=== PATIENT | male | born 1980 | race Caucasian/White ===

== ENCOUNTER 2017-05-01 15:41 | Emergency (ER) | payer SELFPAY ==
[~2017-05-01] VITALS: Ht 185.4 cm; Wt 95.0 kg
[2017-05-01 15:42] VITALS: BP 141/84; PULSE 101; RESP 16; TEMP 98.6; O2SAT 96
[2017-05-01 17:02] VITALS: BP 125/75; PULSE 81; RESP 18; O2SAT 98
[2017-05-01 17:07] VITALS: BP 125/75; PULSE 81; RESP 18; O2SAT 98
--- NOTE | 2017-05-01 17:07 | PD ---
HPI Chief Complaint: Neuro Symptoms/ Deficits Time Seen by Provider: 16:56 Travel History International Travel<30 days: No Contact w/Intl Traveler<30days: No Traveled to known affect area: No History of Present Illness HPI 37-year-old male here for evaluation of left arm numbness and right ankle burning. The patient reports intermittent left arm numbness for the last week. He also has intermittent burning sensation in his right ankle for the last 6 weeks. He denies pain anywhere. No head or neck pain. No chest pain. Currently his left arm is not numb, however he states about a minute before I walked in his roommate did feel numb. He reports total arm numbness sensation. No weakness. He has noted some intermittent blurry vision as well. [facility] Social History Alcohol Use: Yes Tobacco Use: Yes Substance Use: No Allergies-Medications (Allergen,Severity, Reaction): Coded Allergies: No Known Allergies (Verified Allergy, Unknown, 05/01/17) Reported Meds & Prescriptions Reported Meds & Active Scripts Active No Active Prescriptions or Reported Medications Review of Systems Except as stated in HPI: all other systems reviewed are Neg Physical Exam Narrative GENERAL: Well-developed, well-nourished, awake, alert, GCS 15, no apparent distress. SKIN: Focused skin assessment warm/dry. HEAD: Atraumatic. Normocephalic. EYES: Pupils equal and round. No scleral icterus. No injection or drainage. ENT: Mucous membranes pink and moist. NECK: Trachea midline. No JVD. No midline cervical spine step-off or tenderness. CARDIOVASCULAR: Regular rate and rhythm. Distal pulses brisk and equal bilaterally. RESPIRATORY: No accessory muscle use. Clear to auscultation. Breath sounds equal bilaterally. GASTROINTESTINAL: Abdomen soft, non-tender, nondistended. MUSCULOSKELETAL: No obvious deformities. No clubbing. No cyanosis. No edema. Right ankle without obvious deformity. Bilateral calves are supple and nontender. NEUROLOGICAL: Awake and alert. No obvious cranial nerve deficits. Motor grossly within normal limits. Normal speech. Normal muscle strength and range of motion in bilateral upper and lower extremities. Normal sensation in all 4 extremities. PSYCHIATRIC: Appropriate mood and affect; insight and judgment normal. Data Data Last Documented VS Vital Signs Date Time Temp Pulse Resp B/P (MAP) Pulse Ox O2 Delivery O2 Flow Rate FiO2 05/01/17 19:01 81 18 117/65 (82) 98 05/01/17 17:07 Room Air 05/01/17 15:42 98.6 Orders Orders Complete Blood Count With Diff (05/01/17 17:03) Comprehensive Metabolic Panel (05/01/17 17:03) Prothrombin Time / Inr (Pt) (05/01/17 17:03) Act Partial Throm Time (Ptt) (05/01/17 17:03) Iv Access Insert/Monitor (05/01/17 17:03) Ecg Monitoring (05/01/17 17:03) Oximetry (05/01/17 17:03) Sodium Chloride 0.9% Flush (Ns Flush) (05/01/17 17:15) Electrocardiogram (05/01/17 17:03) Ct Brain W/O Iv Contrast(Rout) (05/01/17 ) Ct Cerv Spine W/O Contrast (05/01/17 ) Mandatory Outpatient Referral (05/01/17 18:29) Labs Laboratory Tests Test 05/01/17 17:55 White Blood Count 7.3 TH/MM3 Red Blood Count 4.80 MIL/MM3 Hemoglobin 16.0 GM/DL Hematocrit 46.8 % Mean Corpuscular Volume 97.5 FL Mean Corpuscular Hemoglobin 33.2 PG Mean Corpuscular Hemoglobin Concent 34.1 % Red Cell Distribution Width 13.8 % Platelet Count 192 TH/MM3 Mean Platelet Volume 7.9 FL Neutrophils (%) (Auto) 44.7 % Lymphocytes (%) (Auto) 44.0 % Monocytes (%) (Auto) 8.3 % Eosinophils (%) (Auto) 2.6 % Basophils (%) (Auto) 0.4 % Neutrophils # (Auto) 3.2 TH/MM3 Lymphocytes # (Auto) 3.2 TH/MM3 Monocytes # (Auto) 0.6 TH/MM3 Eosinophils # (Auto) 0.2 TH/MM3 Basophils # (Auto) 0.0 TH/MM3 CBC Comment DIFF FINAL Differential Comment Prothrombin Time 10.7 SEC Prothromb Time International Ratio 1.0 RATIO Activated Partial Thromboplast Time 27.8 SEC Blood Urea Nitrogen 13 MG/DL Creatinine 1.06 MG/DL Random Glucose 87 MG/DL Total Protein 7.0 GM/DL Albumin 4.3 GM/DL Calcium Level 8.6 MG/DL Alkaline Phosphatase 44 U/L Aspartate Amino Transf (AST/SGOT) 23 U/L Alanine Aminotransferase (ALT/SGPT) 23 U/L Total Bilirubin 0.5 MG/DL Sodium Level 138 MEQ/L Potassium Level 4.0 MEQ/L Chloride Level 104 MEQ/L Carbon Dioxide Level 26.9 MEQ/L Anion Gap 7 MEQ/L Estimat Glomerular Filtration Rate 79 ML/MIN [facility] Medical Decision Making Medical Screen Exam Complete: Yes Emergency Medical Condition: Yes Interpretation(s) EGK: sinus, rate 85, normal axis, short PA interval, no acute ischemic abnormalities. Differential Diagnosis Radiculopathy, disc herniation, peripheral neuropathy, intracranial abnormality , metabolic abnormality Narrative Course Vital signs show heart rate 81, blood pressure 125/75, pulse ox 98% on room air , oral temp of 98.6F. CBC is unremarkable. CMP is unremarkable. CT head: Negative for acute process. CT cervical spine: CONCLUSION: Significant degenerative changes at C5-C6 and C6-C7 spinal stenosis and bilateral neural foramina encroachment. Case discussed with on-call neurosurgeon Dr. Poole. The patient has been experiencing intermittent left upper extremity numbness. No weakness. On exam he has normal form layer strength and range of motion and strength in bilateral upper extremities. Patient can follow-up as an outpatient and have MRI performed as an outpatient. Patient was made aware of all findings. He is resting comfortably. A mandatory referral was ordered for outpatient follow-up with neurosurgery. He is stable for discharge home with further workup as an outpatient. I will also given the information to the [facility] to follow-up with this week. He was informed on when to return to the emergency department. He verbalizes understanding and agreement with plan. Diagnosis Primary Impression: Cervical stenosis of spine Additional Impression: Radiculopathy Qualified Codes: M54.12 - Radiculopathy, cervical region Referrals: Lopez Poole MD 3 days Neurosurgeon [facility] 3 days Additional Instructions: Follow-up with a primary care physician this week. Follow-up with neurosurgeon Dr. Poole or a neurosurgeon of your choice this week. Return to the emergency department for worsening symptoms or any other concerns. Scripts No Active Prescriptions or Reported Meds Disposition: 01 DISCHARGE HOME Condition: Stable Vega Godoy MD May 01, 2017 17:06
[2017-05-01] MEDS ORDERED: SODIUM CHLORIDE 0.9% FLUSH 10 ML FLUSH IV FLUSH PRN (17:15)
--- NOTE | 2017-05-01 17:50 | RADRPT ---
EXAM DATE/TIME: 05/01/2017 17:38 [facility] COMPARISON: No previous studies available for comparison. INDICATIONS : Left arm weakness. RADIATION DOSE: 48.25 CTDIvol (mGy) MEDICAL HISTORY : None SURGICAL HISTORY : None. ENCOUNTER: Initial ACUITY: 1 week PAIN SCALE: 0/10 LOCATION: cranial TECHNIQUE: Multiple contiguous axial images were obtained of the head. Using automated exposure control and adj ustment of the mA and/or kV according to patient size, radiation dose was kept as low as reasonably a chievable to obtain optimal diagnostic quality images. DICOM format image data is available electro nically for review and comparison. FINDINGS: CEREBRUM: The ventricles are normal for age. No evidence of midline shift, mass lesion, hemorrhage or acute in farction. No extra-axial fluid collections are seen. POSTERIOR FOSSA: The cerebellum and brainstem are intact. The 4th ventricle is midline. The cerebellopontine angle i s unremarkable. EXTRACRANIAL: The visualized portion of the orbits is intact. SKULL: The calvaria is intact. No evidence of skull fracture. CONCLUSION: Negative for acute process. Jameel Paz MD FACR on May 01, 2017 at 17:48 Board Certified Radiologist. This report was verified electronically.
--- NOTE | 2017-05-01 17:58 | RADRPT ---
EXAM DATE/TIME: 05/01/2017 17:38 [facility] COMPARISON: No previous studies available for comparison. INDICATIONS : Left arm weakness. RADIATION DOSE: 42.42 CTDIvol (mGy) MEDICAL HISTORY : None SURGICAL HISTORY : None. ENCOUNTER: Initial ACUITY: 1 week PAIN SCALE: 0/10 LOCATION: Bilateral neck TECHNIQUE: Volumetric scanning of the cervical spine was performed. Multiplanar reconstructions in the sagittal, coronal and oblique axial planes were performed. Using automated exposure control and adjustment o f the mA and/or kV according to patient size, radiation dose was kept as low as reasonably achievable to obtain optimal diagnostic quality images. DICOM format image data is available electronically f or review and comparison. FINDINGS: VERTEBRAE: Normal vertebral body height. ALIGNMENT: Reversal of the normal cervical lordosis. C2-C3: The bony spinal canal is normal in size. No evidence of disc bulge or herniation. The neural forami na are bilaterally patent. C3-C4: The bony spinal canal is normal in size. No evidence of disc bulge or herniation. The neural forami na are bilaterally patent. C4-C5: The bony spinal canal is normal in size. No evidence of disc bulge or herniation. The neural forami na are bilaterally patent. C5-C6: Mild uncinate ridging is present with bilateral neural foramina encroachment worse on left than the r ight. C6-C7: Moderate uncinate ridging is present the bilateral neural foramina encroachment worse on the left saray n the right. C7-T1: The bony spinal canal is normal in size. No evidence of disc bulge or herniation. The neural forami na are bilaterally patent. CONCLUSION: Significant degenerative changes at C5-C6 and C6-C7 spinal stenosis and bilateral neural foramina enc roachment. Jameel Paz MD FACR on May 01, 2017 at 17:56 Board Certified Radiologist. This report was verified electronically.
[2017-05-01 18:10] LABS: AUTOMATED NEUTROPHIL # 3.2 TH/MM3 (1.8-7.7); BASOPHIL % 0.4 % (0.0-2.0); EOSINOPHIL # 0.2 TH/MM3 (0-0.4); EOSINOPHIL % 2.6 % (0.0-4.0); HEMATOCRIT 46.8 % (39.0-51.0); HEMO FLAGS DIFF FINAL; LYMPHOCYTE # 3.2 TH/MM3 (1.0-4.8); MEAN CELL VOLUME 97.5 FL (80.0-100.0); MEAN CORPUSCULAR HEMOGLOBIN 33.2 PG (27.0-34.0); MEAN CORPUSCULAR HGB CONC 34.1 % (32.0-36.0); MONO % 8.3 % (0.0-8.0); NEUT % 44.7 % (16.0-70.0); PLATELET COUNT 192 TH/MM3 (150-450); RED CELL DISTRIBUTION WIDTH 13.8 % (11.6-17.2); WHITE BLOOD COUNT 7.3 TH/MM3 (4.0-11.0)
[2017-05-01 18:27] LABS: ALT (GPT) 23 U/L (12-78); ANION GAP 7 MEQ/L (5-15); APTT (PATIENT) 27.8 SEC (24.3-30.1); AST (GOT) 23 U/L (15-37); BICARBONATE 26.9 MEQ/L (21.0-32.0); BLOOD UREA NITROGEN 13 MG/DL (7-18); CHLORIDE 104 MEQ/L (98-107); GLOMERULAR FILTRATION RATE 79 ML/MIN (>89); PROTHROMBIN TIME - PATIENT 10.7 SEC (9.8-11.6); SODIUM (NA) 138 MEQ/L (136-145)
[2017-05-01 18:30] LABS: ALKALINE PHOSPHATASE 44 U/L (45-117); TOTAL BILIRUBIN ADULT 0.5 MG/DL (0.2-1.0)
[2017-05-01 19:01] VITALS: BP 117/65
--- NOTE | 2017-05-02 09:54 | EKG ---
Date Performed: 05/01/2017 Time Performed: 17:26:14 PTAGE: 37 years EKG: Sinus rhythm WITH SHORT AZ INTERVAL BORDERLINE ECG NO PREVIOUS TRACING DOCTOR: Reddy Phan Interpretating Date/Time 05/02/2017 09:52:48
== END 2017-05-01 19:03 | disposition home or self-care (01) ==
LOC: NEPD 15:41
DX: M48.02 Spinal stenosis, cervical region (principal); H53.8 Other visual disturbances; R53.1 Weakness
CPT/HCPCS: 70450; 72125; 80053; 85025; 85610; 85730; 93005; 99285